=== PATIENT | female | born 1950 | race Caucasian/White ===

== ENCOUNTER 2016-06-18 11:06 | Inpatient (IN) ==
[2016-06-18] MEDS ORDERED: NS 2,000 ML ONE (11:22)
[2016-06-18 11:30] LABS: BE 12.1 mmoll (-3.0-3.0); BLOOD TYPE ARTERIAL; DRAW SITE R RADIAL; METHB 1.1 % (0.0-1.5); O2(CT) 18.8 mL/dL (15.0-23.0); PCO2(98.6) 41 mmHg (35-45); SAMPLE BLOOD; SAO2 91.3 % (95.0-100.0); THB 16.5 g/dL (11.5-17.4); pH(98.6) 7.55 (7.35-7.45)
[2016-06-18 11:34] LABS: MODALITY ROOM AIR; PO2(98.6) 47 mmHg (60-100)
[2016-06-18 11:34] LABS: MANUAL DIFF NEEDED? NO
[2016-06-18] MEDS ORDERED: NS 1,000 ML IV ONE ×2 (11:34→12:28)
[2016-06-18 11:35] LABS: ALLEN TEST YES
[2016-06-18 11:37] LABS: BASO% 0.5 % (0.0-0.8); EOS# 0.11 X1000 (0.0-0.7); EOS% 1.5 % (0.0-10.0); HEMATOCRIT 47.3 % (37.0-47.0); HEMOGLOBIN 16.1 g/dL (12.0-16.0); IMM GRAN# 0.01 X1000 (0.0-0.04); IMM GRAN% 0.1 % (0.0-0.5); LYMPH# 1.33 X1000 (1.2-3.4); LYMPH% 17.8 % (20.5-51.1); MCH 33.6 PG (27-31); MCV 98.7 FL (81-99); MONO# 0.87 X1000 (0.11-0.59); MONO% 11.7 % (1.7-9.3); MPV 10.5 FL (7.4-10.4); NEUT% 68.4 % (42.2-75.2); PLT 213 X1000 (130-400); RBC 4.79 XMIL (4.2-5.4)
--- NOTE | 2016-06-18 11:38 | EKG Report ---
Test Performed on : 06/18/2016 11:22:01 AM Test Reason : SOB Blood Pressure : / mmHG Vent. Rate : 145 BPM Atrial Rate : 133 BPM P-R Int : 000 ms QRS Dur : 074 ms QT Int : 334 ms P-R-T Axes : 000 064 068 degrees QTc Int : 518 ms Atrial fibrillation. with rapid ventricular response. Abnormal ECG When compared with ECG of 09-JAN-2016 13:24, No significant change was found Unconfirmed Result
[2016-06-18 11:57] LABS: INR 1.01 (0.86-1.15); PROTIME 13.6 Seconds (12.1-15.5); PTT PL 33.7 Seconds (22.6-43.9)
[2016-06-18] MEDS ORDERED: NEO-SYNEPHRINE 50 MG in NS 250 ML IV SCH ×2 (12:00→12:30)
[2016-06-18 12:01] LABS: ALBUMIN 3.3 g/dL (3.5-5.0); CALCIUM 9.5 mg/dL (8.8-10.2); POTASSIUM 2.8 mmol/L (3.5-5.1); TOTAL BILIRUBIN 0.4 mg/dL (0.20-1.00); TOTAL PROTEIN 6.8 g/dL (6.3-8.3)
[2016-06-18 12:24] LABS: CK INDEX 0.8 (0.0-2.5); CK-MB 1.4 ng/mL (0.0-5.0)
[2016-06-18] MEDS ORDERED: NS 1,000 ML ONE (12:27)
--- NOTE | 2016-06-18 12:27 | PROVIDER DOCUMENTATION ---
This chart was entered by Lyndsey Kaplan Scribe, acting as scribe for Mk Boyd MD. HPI-Respiratory General - General Chief Complaint: Shortness of Breath Stated Complaint: SOB,DIZZINESS,LOW BP Time Seen by Provider: 06/18/16 11:18 Source: patient Allergies/Adverse Reactions: Patient Allergies Allergy/AdvReac Type Severity Reaction Status Date / Time codeine Allergy NAUSEA Verified 06/18/16 11:12 Home Medications: Home Medication List Medication Instructions Recorded Confirmed Last Taken Type Chlorthalidone 25 mg PO DAILY 07/12/14 06/18/16 01/09/16 09:00 History Glipizide 5 mg PO QHS 07/12/14 06/18/16 07/11/14 07:00 History Sotalol HCl [Sorine] 80 mg PO BID 07/12/14 06/18/16 07/11/14 20:00 History Temazepam 30 mg PO QHS 07/12/14 06/18/16 07/11/14 22:00 History Apixaban [Eliquis] 2.5 mg PO BID 01/09/16 06/18/16 01/04/16 History Aspirin [Aspirin EC] 81 mg PO DAILY 01/09/16 06/18/16 01/04/16 History Cilostazol 100 mg PO BID 01/09/16 06/18/16 01/09/16 09:00 History Duloxetine [Cymbalta] 60 mg PO DAILY 01/09/16 06/18/16 Unknown History Gabapentin 2 cap PO QHS 01/09/16 06/18/16 Unknown History Lisinopril 20 mg PO DAILY 01/09/16 06/18/16 01/04/16 History SIMVAstatin [Zocor] 1 tab PO QHS 01/09/16 06/18/16 Unknown History Budesonide E.r. [Entocort EC] 3 mg PO BID 06/18/16 06/18/16 Unknown History - History of Present Illness-Resp Nature of Presenting Problem: 66 yo F presents to the ER with complaint of SOB x4 days. States she has had a URI x1 week ago and has been increasingly SOB for the last x4 days. Denies any CP or n/v/d. Onset/Duration: reports: 4 days ago Cough Quality/Degree: reports: moderate Associated Symptoms: reports: cough, shortness of breath, short of breath. denies: chest pain/soreness, fever/chills Review of Systems - Adult - REVIEW OF SYSTEMS - ADULT Constitutional: denies: chills, fever Eyes: reports: no symptoms reported Ears, Nose, Mouth & Throat: reports: no symptoms reported Cardiovascular: denies: chest pain, palpitations Respiratory: reports: cough, shortness of breath Gastrointestinal: reports: no symptoms reported Genitourinary: reports: no symptoms reported Musculoskeletal: reports: no symptoms reported Integumentary: reports: no symptoms reported Neurological: reports: no symptoms reported Psychiatric: reports: no symptoms reported Endocrine: reports: no symptoms reported Hematologic/Lymphatic: reports: no symptoms reported Allergic/Immunologic: reports: no symptoms reported All Other Systems: Reviewed and Negative Past History - Adult - PAST MEDICAL HISTORY-ADULT Review of Records: reports: Nursing Assessment Review, Medications Reviewed Cardiovascular: reports: A-Fib, HTN Respiratory: reports: COPD Genitourinary: reports: kidney disease Psychiatric: reports: depression Endocrine/Immune: reports: Diabetes - PRIOR SURGERIES/PROCEDURES Surgical/Procedure History: reports: cholecystectomy, hysterectomy, hernia repair - IMMUNIZATION STATUS Childhood Immunizations: See Nurse Assessment Flu Vaccine: See Nurse Assessment - SOCIAL HISTORY Smoking: cigarettes Provider spent 3-5 mins advising pt. on dangers of tobacco.: Discussed manners to quit use, and f/u contacts for add'l counseling. Physical Exam-General - PHYSICAL EXAM-ADULT Initial Vital Signs Reviewed: Yes - CONSTITUTIONAL General Appearance: alert, mild distress - EYES Eyes: PERRL/EOMI, pink conjunctivae - HEAD, EARS, NOSE, MOUTH & THROAT HENMT: normocephalic/atraumatic, normal ENT inspection - NECK Neck: supple, normal inspection - RESPIRATORY Respiratory: rhonchi, increased rate - CARDIOVASCULAR Cardiovascular: normal peripheral pulses, no edema, tachycardia - MUSCULOSKELETAL Back Exam: no CVA tenderness, no vertebral tenderness Extremity: normal gait, normal inspection - SKIN Integumentary: normal color, warm/dry - NEUROLOGIC Neurologic: grossly normal, no motor/sensory deficits - PSYCHIATRIC Psych/Mental Status: normal mood/affect, normal thought content, normal thought process, oriented x 3 Progress - PLAN OF CARE/RESULTS Progress/Plan/Lab Results: Vital Signs - 8 hr 06/18/16 11:09 Temperature 97.2 F L Pulse Rate 122 H Respiratory Rate 30 H Blood Pressure 94/58 Laboratory Results - last 24 hr 06/18/16 06/18/16 06/18/16 11:15 11:20 11:20 WBC 7.46 RBC 4.79 Hgb 16.1 H Hct 47.3 H MCV 98.7 MCH 33.6 H MCHC 34.0 RDW Std Deviation 13.0 Plt Count 213 MPV 10.5 H Immature Gran % (Auto) 0.1 Neut % (Auto) 68.4 Lymph % (Auto) 17.8 L [place] % (Auto) 11.7 H Eos % (Auto) 1.5 Baso % (Auto) 0.5 Immature Gran # (Auto) 0.01 Neut # (Auto) 5.10 Lymph # (Auto) 1.33 [place] # (Auto) 0.87 H Eos # (Auto) 0.11 Baso # (Auto) 0.04 PT INR APTT (Factor Assay) D-Dimer Specimen Type ARTERIAL Sample Site R RADIAL pH 7.55 H pCO2 41 pO2 47 L* HCO3 33.8 H Base Excess 12.1 H Oxyhemoglobin 81.3 L* ABG O2 Sat (Calculated) 18.8 ABG O2 Saturation 91.3 L ABG Carboxyhemoglobin 9.90 H* ABG Methemoglobin 1.1 Josh Test YES A-a O2 Difference 51.0 Total Hemoglobin 16.5 Lactate 1.40 Blood Gas Modality ROOM AIR FiO2 % 21.0 Sodium 133 L Potassium 2.8 L Chloride 89 L Carbon Dioxide 33 Anion Gap 11 BUN 24 H Creatinine 1.4 H Estimated GFR/1.73 m2 38 BUN/Creatinine Ratio 17 Glucose 173 H Calculated Osmolality 275 Calcium 9.5 Magnesium Total Bilirubin 0.40 AST 22 ALT 19 Alkaline Phosphatase 75 Creatine Kinase Creatine Kinase Index CK-MB (CK-2) Troponin T Hbx-H-Lsytidbxjmq Pept Total Protein 6.8 Albumin 3.3 L Globulin 4.0 Albumin/Globulin Ratio 1.0 Plasma Lactate 06/18/16 06/18/16 06/18/16 11:20 11:20 11:20 WBC RBC Hgb Hct MCV MCH MCHC RDW Std Deviation Plt Count MPV Immature Gran % (Auto) Neut % (Auto) Lymph % (Auto) [place] % (Auto) Eos % (Auto) Baso % (Auto) Immature Gran # (Auto) Neut # (Auto) Lymph # (Auto) [place] # (Auto) Eos # (Auto) Baso # (Auto) PT INR APTT (Factor Assay) D-Dimer Specimen Type Sample Site pH pCO2 pO2 HCO3 Base Excess Oxyhemoglobin ABG O2 Sat (Calculated) ABG O2 Saturation ABG Carboxyhemoglobin ABG Methemoglobin Josh Test A-a O2 Difference Total Hemoglobin Lactate Blood Gas Modality FiO2 % Sodium Potassium Chloride Carbon Dioxide Anion Gap BUN Creatinine Estimated GFR/1.73 m2 BUN/Creatinine Ratio Glucose Calculated Osmolality Calcium Magnesium Total Bilirubin AST ALT Alkaline Phosphatase Creatine Kinase 186 H Creatine Kinase Index 0.8 CK-MB (CK-2) 1.40 Troponin T < 0.010 Ild-J-Eszndeeyreu Pept 343 Total Protein Albumin Globulin Albumin/Globulin Ratio Plasma Lactate 06/18/16 06/18/16 06/18/16 11:20 11:20 11:20 WBC RBC Hgb Hct MCV MCH MCHC RDW Std Deviation Plt Count MPV Immature Gran % (Auto) Neut % (Auto) Lymph % (Auto) [place] % (Auto) Eos % (Auto) Baso % (Auto) Immature Gran # (Auto) Neut # (Auto) Lymph # (Auto) [place] # (Auto) Eos # (Auto) Baso # (Auto) PT 13.6 INR 1.01 APTT (Factor Assay) 33.7 D-Dimer Specimen Type Sample Site pH pCO2 pO2 HCO3 Base Excess Oxyhemoglobin ABG O2 Sat (Calculated) ABG O2 Saturation ABG Carboxyhemoglobin ABG Methemoglobin Josh Test A-a O2 Difference Total Hemoglobin Lactate Blood Gas Modality FiO2 % Sodium Potassium Chloride Carbon Dioxide Anion Gap BUN Creatinine Estimated GFR/1.73 m2 BUN/Creatinine Ratio Glucose Calculated Osmolality Calcium Magnesium 2.0 Total Bilirubin AST ALT Alkaline Phosphatase Creatine Kinase Creatine Kinase Index CK-MB (CK-2) Troponin T Dly-B-Orlkdzpgcnz Pept Total Protein Albumin Globulin Albumin/Globulin Ratio Plasma Lactate 2.0 06/18/16 11:20 WBC RBC Hgb Hct MCV MCH MCHC RDW Std Deviation Plt Count MPV Immature Gran % (Auto) Neut % (Auto) Lymph % (Auto) [place] % (Auto) Eos % (Auto) Baso % (Auto) Immature Gran # (Auto) Neut # (Auto) Lymph # (Auto) [place] # (Auto) Eos # (Auto) Baso # (Auto) PT INR APTT (Factor Assay) D-Dimer 0.33 Specimen Type Sample Site pH pCO2 pO2 HCO3 Base Excess Oxyhemoglobin ABG O2 Sat (Calculated) ABG O2 Saturation ABG Carboxyhemoglobin ABG Methemoglobin Josh Test A-a O2 Difference Total Hemoglobin Lactate Blood Gas Modality FiO2 % Sodium Potassium Chloride Carbon Dioxide Anion Gap BUN Creatinine Estimated GFR/1.73 m2 BUN/Creatinine Ratio Glucose Calculated Osmolality Calcium Magnesium Total Bilirubin AST ALT Alkaline Phosphatase Creatine Kinase Creatine Kinase Index CK-MB (CK-2) Troponin T Bli-J-Gizfsfiksow Pept Total Protein Albumin Globulin Albumin/Globulin Ratio Plasma Lactate Orders Category Date Time Status Cardiac Monitoring DIRECTED Care 06/18/16 11:26 Active IV Insertion ORDERED Care 06/18/16 11:26 Completed Notify MD of + Sepsis Screen NOW Care 06/18/16 11:26 Active CHEST-PORTABLE [RAD] Stat Exams 06/18/16 11:18 Taken ABG [RESP] Routine Lab 06/18/16 11:15 Completed BLOOD CULTURE [BLDCUL] Stat Lab 06/18/16 11:21 Ordered BNP [PRO B-NATRIURETIC PEPTIDE] Stat Lab 06/18/16 11:20 Completed CBC WITH DIFF [HEME] Stat Lab 06/18/16 11:20 Completed CK PROFILE [SP CHEM] Stat Lab 06/18/16 11:20 Results COMPREHENSIVE METABOLIC PANEL [CHEM] Stat Lab 06/18/16 11:20 [address] D-DIMER PL [COAG] Stat Lab 06/18/16 11:20 Completed LACTATE, PLASMA [CHEM] Stat Lab 06/18/16 11:20 Completed MAGNESIUM [CHEM] Stat Lab 06/18/16 11:20 Completed [address]IME WITH INR PL [COAG] Stat Lab 06/18/16 11:[address] [COAG] Stat Lab 06/18/16 11:20 Completed TROPONIN T Stat Lab 06/18/16 11:[address] W/POSS RFLX CULT [URINALYSIS] Stat Lab 06/18/16 11:26 Uncollected 0.9% Sodium Chloride Inj [Ns] 1,000 ml Med 06/18/16 11:34 Active IV 999 mls/hr 0.9% Sodium Chloride Inj [Ns] 2,000 ml Med 06/18/16 11:22 Discontinued .ROUTE As Directed 0.9% Sodium Chloride Inj [Ns] 250 ml Med 06/18/16 12:00 Active Phenylephrine [Sachin-Synephrine] 50 mg IV As Directed Oxygen Device Stat Oth 06/18/16 11:26 Active EKG [EKG] Routine Ther 06/18/16 11:21 Draft Result Diagrams: 06/18/16 11:20 06/18/16 11:20 - EKG 1 Time of EKG reading by physician:: 11:22 EKG Read and Signed by:: Mk Boyd EKG Interpretation (*Must complete 3 of following elements*): Abnormal Rate: 145 Rhythm: a-fib with rapid ventricular response [place]: normal QRS: normal GA Interval: normal ST Wave: normal - XRAY 1 XRAY Study: Chest Impression: Normal - CONSULTS/PCP/HOSPITALIST Notification #1 *Consult/PCP/Hospitalist*: Dr. Grant Time Discussed: 12:18 Consult Disposition: Admit Departure - Departure Time of Disposition Decision: 12:24 DIAGNOSIS: Hypotension, Atrial fibrillation, Hypokalemia, COPD (chronic obstructive pulmonary disease) with acute bronchitis Disposition: ADMITTED INPATIENT 09 Certified Medical Emergency: Emergent Condition: Stable Referrals and Follow-Ups: Corine Ruffin MD [Primary Care Provider] - This chart was documented by the indicated scribe, (Lyndsey Kaplan Scribe) and accurately reflects the services I performed and decisions made by me, Mk Boyd MD, as attested by the provider's signature.
--- NOTE | 2016-06-18 12:58 | Diag Imaging Result Document ---
PROCEDURE NAME: CHEST-PORTABLE - 06/18/2016 PORTABLE CHEST X-RAY, 06/18/2016: COMPARISON: 06/12/2016. FINDINGS: The lungs are normally expanded and clear. Heart size and mediastinal contours are normal. No pneumothorax or pleural effusion. IMPRESSION: Negative exam.
[2016-06-18] MEDS: ZOSYN 3.375 GM/NS 3.375 GM/50 ML IVPB IV SCH ×2 (15:42→20:38)
[2016-06-18] MEDS: DUONEB (A & A) INH SCH ×3 (16:10→22:30)
[2016-06-18] MEDS: CARDIZEM PO SCH (20:38)
[2016-06-18] MEDS: NS 1,000 ML IV SCH (20:39)
[2016-06-18] MEDS: RESTORIL PO SCH (21:19)
[2016-06-18] MEDS: GLUCOTROL PO SCH (22:44)
[2016-06-18] MEDS: NEURONTIN PO SCH (22:45)
[2016-06-19] MEDS: CARDIZEM PO SCH ×3 (01:34→13:55)
[2016-06-19] MEDS: ZOSYN 3.375 GM/NS 3.375 GM/50 ML IVPB IV SCH ×4 (02:07→21:05)
[2016-06-19 02:37] LABS: BILIRUBIN URINE NEGATIVE (NEGATIVE); BLOOD URINE 1+ (NEGATIVE); CLARITY CLEAR (CLEAR); COLOR YELLOW; GLUCOSE URINE NEGATIVE (NEGATIVE); LEUKOCYTES URINE TRACE (NEGATIVE); NITRITE URINE NEGATIVE (NEGATIVE); PROTEIN URINE NEGATIVE (NEGATIVE); UROBILINOGEN URINE NORMAL
[2016-06-19 02:38] LABS: URINE CULTURE PL NEEDED? YES; URINE EPITHELIAL CELLS <10 /HPF (<10); URINE RBC <10 /HPF (<10); URINE SOURCE CLEAN CATCH; URINE WBC <10 /HPF (<10)
[2016-06-19] MEDS: DUONEB (A & A) INH SCH ×6 (03:19→22:45)
[2016-06-19 08:30] LABS: HEMATOCRIT 40.4 % (37.0-47.0); HEMOGLOBIN 13.4 g/dL (12.0-16.0); MCH 33.3 PG (27-31); MCHC 33.2 g/dL (33-37); MCV 100.5 FL (81-99); MPV 10.3 FL (7.4-10.4); RBC 4.02 XMIL (4.2-5.4)
[2016-06-19] MEDS: BETAPACE PO SCH ×2 (08:50→21:03)
[2016-06-19] MEDS: CYMBALTA PO SCH (08:50)
[2016-06-19 08:51] LABS: AGAP 8; ALBUMIN 2.6 g/dL (3.5-5.0); ALKALINE PHOSPHATASE 57 U/L (32-104); BUN 12 mg/dL (8-22); CALCIUM 8.3 mg/dL (8.8-10.2); CHLORIDE 102 mmol/L (98-107); COSMO 273; GOT 17 U/L (10-30); GPT 13 U/L (10-36); HDL 38 mg/dL (45-65); LDL 42 mg/dL; MAGNESIUM 1.8 mg/dL (1.5-2.7); POTASSIUM 3.2 mmol/L (3.5-5.1); SODIUM 137 mmol/L (136-145); TCO2 27 mmol/L (25-35); TOTAL PROTEIN 5.5 g/dL (6.3-8.3); TRIGLYCERIDES 96 mg/dL (35-135); VLDL 19 mg/dL
[2016-06-19] MEDS: PLETAL PO SCH ×2 (08:51→21:04)
[2016-06-19] MEDS: ASPIRIN EC PO SCH (08:51)
[2016-06-19] MEDS: ELIQUIS PO SCH ×2 (08:51→21:03)
[2016-06-19] MEDS ORDERED: PRINIVIL PO SCH (09:00)
[2016-06-19] MEDS ORDERED: HYGROTON PO SCH (09:00)
[2016-06-19] MEDS: NS 1,000 ML IV SCH ×2 (11:00→23:46)
[2016-06-19] MEDS: ENTOCORT EC PO SCH ×2 (11:06→21:05)
[2016-06-19] MEDS ORDERED: KLOR-CON PO ONE (14:20)
--- NOTE | 2016-06-19 16:57 | CONSULTATION ---
DATE OF CONSULTATION: 06/19/2016 HISTORY OF PRESENT ILLNESS: Ms. Negar Henry is a 66-year-old lady who for the last week has been having cough with some low-grade fevers and expectoration and was diagnosed to have bronchitis. She came to the emergency room feeling unwell, short of breath and was noted to be in atrial fibrillation with rapid ventricular rate. She has known history of paroxysmal atrial fibrillation. She has been taking her medications regularly. When she came in, she was hypotensive and she was started on a Sachin-Synephrine drip which was discontinued last night. She feels much better. Complains of having cough. Denies chest pain suggestive of angina. She has episodes of palpitations. There is no orthopnea. There is no mary syncopal episode. She is anticoagulated, does not complain of any bleeding diatheses. REVIEW OF SYSTEMS: 14-point review of system was done. GI System: There is no history of nausea, vomiting, or diarrhea. There is no history of hematemesis or melena. Central nervous system: No focal weakness to suggest a CVA, TIA. system: There is no dysuria or hematuria. Respiratory system: As above. ALLERGIES: She is allergic to codeine. HOME MEDICATIONS: Include. Glipizide 5 mg p.o. at bedtime, temazepam 30, chlorthalidone 25, sotalol 80 b.i.d., Cymbalta 60, lisinopril 20, enteric-coated aspirin 81, Eliquis 2.5 mg p.o. b.i.d., simvastatin 40, budesonide. PAST MEDICAL HISTORY: 1. Paroxysmal atrial fibrillation. 2. Left heart catheterization 2009 revealed normal coronary arteries. 3. Anticoagulation therapy with Eliquis. 4. History of palpitations. 5. Hypertension, hyperlipidemia. 6. History of renal insufficiency in the past. 7. Diabetes. 8. Nicotine dependence. 9. Degenerative joint disease. 10. Depression. 11. Hypercholesterolemia. PHYSICAL EXAM: Vital signs: At the time of my examination blood pressure 113/72. Cardiovascular System: Normal jugular venous pressure. There no thyromegaly, is no carotid bruit. First and second heart sounds heard. There is no S3 gallop. Respiratory System: Few scattered wheeze. Abdomen: Was soft, nontender. There was no guarding or rigidity. Bowel sounds were heard. Central nervous system: Alert and was moving all 4 extremities. Extremities: Examination of extremities revealed no pedal edema. HEENT: Atraumatic, normocephalic. Pupils were equal and reacting to light. LABORATORY EXAMINATION: WBC 7.46, hemoglobin 16, hematocrit 47, platelet count of 213,000. Sodium 133, potassium 2.8, BUN 24, creatinine 1.4. Cardiac enzymes negative. Subsequent revealed a sodium of 137, potassium 3.2, BUN 12, creatinine 1.0. ASSESSMENT AND PLAN: 1. Ms. Negar Henry is a 66-year-old lady with history of paroxysmal atrial fibrillation, hypertension, anticoagulation therapy, renal insufficiency mild and has had bronchitis for the last 1 week comes with complaints of feeling increasing shortness of breath and weak. She was noted to be hypotensive, was hydrated and given Sachin-Synephrine. She feels better. She continues to have cough. From a cardiac standpoint, will continue her anticoagulation therapy for stroke prophylaxis. 2. Got an echocardiogram to assess cardiac and valvular function. 3. She is on sotalol. I have not made any changes to her medication. She has been started on Cardizem. Will put her on Cardizem CD 120 mg a day. Her atrial fibrillation could have been triggered with respiratory tract infection and hypokalemia as well. Probably the hypokalemia caused by chlorthalidone. Would recommend discontinuing the chlorthalidone. Will check a BMP again in the morning. 4. For hypertension I have made the adjustment to the medications, decreased lisinopril since I have added Cardizem. 5. She has been started for her bronchitis on antibiotics and is on piperacillin. I have not made any other changes to the medications. 6. Hypocholesterolemia on Zocor. Continue medications. 7. She is on glipizide for diabetes. Would recommend continuing medications. Thank you for the consult. Will follow hospital course. cc: Raúl Newberry MD
--- NOTE | 2016-06-19 17:32 | HISTORY AND PHYSICAL ---
PRIMARY CARE PHYSICIAN: Corine Ruffin MD. CHIEF COMPLAINT: Shortness of breath that progressively worsened over the past 4 days. HISTORY OF PRESENTING ILLNESS: This is a 66-year-old female who presented to [facility] ER with complaints of shortness of breath that has progressively worsened over the past 4 days. States that approximately 1 week ago. She was treated for an upper respiratory infection, but that it really did not improve. She denied any chest pain, nausea, vomiting or diarrhea. Her chest x-ray was negative. On arrival to the emergency room, she was noted to have a heart rate of 122. EKG showed atrial fibrillation with RVR at 145. Her blood pressure on arrival was 94/58, and within 20 minutes dropped to 81/64, she was started on a Sachin-Synephrine drip. Placed on IV hydration. Placed on Cardizem 30 mg 5 p.o. q.6 hours, and she was admitted to the intensive care unit for further evaluation and treatment. PAST MEDICAL HISTORY: Atrial fibrillation, hypertension, diabetes, depression and chronic kidney disease. PAST SURGICAL HISTORY: Cholecystectomy, hysterectomy, hernia repair and back surgery. FAMILY HISTORY: Noncontributory. SOCIAL HISTORY: She currently lives alone, is a 1 pack a day smoker and has done so for the past 40 years. Denied any alcohol or illicit drug use. ALLERGIES: Codeine. HOME MEDICATIONS: Eliquis 2.5 mg p.o. b.i.d., aspirin 81 mg p.o. daily, Entocort 3 mg p.o. b.i.d., chlorthalidone 25 mg p.o. daily. Cilostazol 100 mg p.o. b.i.d., Cymbalta 60 mg p.o. daily, gabapentin 300 mg 2 capsules p.o. at bedtime, glipizide 5 mg p.o. at bedtime, lisinopril 20 mg p.o. daily, Zocor 40 mg p.o. at bedtime, sotalol 80 mg p.o. b.i.d., and temazepam 30 mg p.o. at bedtime. LABORATORY DATA/DIAGNOSTICS: Showed a white blood cell count of 7.46, hemoglobin 16.1, hematocrit 47.3, platelets 213,000. PT and INR of 13.6 and 1.01 with a D-dimer of 0.33. ABG showed a pH of 7.55, pCO2 of 41, PO2 47, bicarb of 33.8. Sodium of 133, potassium 2.8, chloride 89, CO2 of 33, BUN of 24, creatinine 1.4, glucose 173, magnesium at 2. AST 22, ALT 19, creatine kinase of 186, CK-MB of 1.40 with a troponin of less than 0.010. ProBNP of 343, plasma lactate 2, triglycerides of 96, cholesterol 99. Urinalysis was negative. Chest x-ray showed no acute disease. EKG, atrial fibrillation with RVR at 145. REVIEW OF SYSTEMS: She denied any fever, chills, blurred vision, dizziness. She was positive for shortness of breath, nonproductive cough. Denied chest pain. Denied any abdominal pain, constipation, diarrhea, or burning or hurting with urination. PHYSICAL EXAMINATION: VITAL SIGNS: On arrival showed a temperature of 97.2 degrees, pulse 122. Respirations 30, blood pressure 94/58, saturating 99% on room air. She is currently off of her Sachin-Synephrine drip. Heart rate down to 103, blood pressure up to 113/62, saturating 94% on 2 L via nasal cannula. GENERAL: This is a 66-year-old female who is lying in the bed and answers questions appropriately. HEENT: Normocephalic, atraumatic. Pupils are equal, round, reactive to light. Extraocular movements are intact. Oropharynx and nares are clear. NECK: Supple. LUNGS: Clear to auscultation bilaterally with equal lung expansion and chest wall movement. HEART: Regular rate and rhythm. No murmurs, rubs, or gallops. ABDOMEN: Soft, nontender, nondistended. Bowel sounds are present x4 quadrants. EXTREMITIES: No clubbing, cyanosis, or edema. NEUROLOGICAL: The cranial nerves 2-12 are grossly intact. ASSESSMENT: 1. Atrial fibrillation with rapid ventricular response. 2. Hyponatremia. 3. Hypokalemia. 4. Hypotension. 5. Tobacco abuse. PLAN: She was admitted to the intensive care unit. Placed on telemetry, diabetic diet. We will obtain an echocardiogram in the a.m. We will consult Cardiology. Recheck complete blood count, basic metabolic panel, urine culture is pending. Continue her home medications, DuoNeb q.4 hours, normal saline at 75 mL an hour, Zosyn 3.375 g IV q.6, and potassium 60 mEq p.o. x1 was given. Dictated by MENDOZA Thomas for Manish Grant MD cc: MENDOZA Thomas MD Bhavna Gowda, MD
[2016-06-19] MEDS: GLUCOTROL PO SCH (20:20)
[2016-06-19] MEDS: CARDIZEM CD PO SCH (21:03)
[2016-06-19] MEDS: NEURONTIN PO SCH (21:04)
[2016-06-19] MEDS: RESTORIL PO SCH (21:04)
[2016-06-19] MEDS: ZOCOR PO SCH (21:05)
--- NOTE | 2016-06-20 01:20 | PROGRESS NOTE ---
DATE: 06/19/2016 SUBJECTIVE: The patient notes that she is feeling better today. She denies any current chest pain, palpitations. Denies any fevers or chills. OBJECTIVE: Vital Signs: Temperature 97.9, pulse 107 to 89, respiratory rate 31, BP 111/71, sat 95% on 2 L. General: Patient is awake, alert. She is currently in no real respiratory distress. HEENT: Normocephalic. Neck: Supple. Cardiovascular: Regular rate. Chest: Relatively clear. Abdomen: Soft. Extremities: Moves all extremities. Neurologic: No changes. ASSESSMENT: 1. Atrial fibrillation, improved. 2. Hypertension. 3. Renal insufficiency. 4. Diabetes. 5. Hyponatremia. 6. Hypokalemia. 7. Chronic tobacco abuse. 8. Hypotension, resolved. PLAN: We will continue patient on Zosyn, DuoNeb's, replace her potassium. Cardiology has been consulted, and has placed her on p.o. Cardizem. Certainly, we will need to follow her blood pressures, as she did have low blood pressures earlier. Thankfully, she seems to be tolerating this okay at the moment. Hopefully, we will transfer her to the floor later this afternoon. Further orders as needed. cc: Manish Grant MD
[2016-06-20] MEDS: ZOSYN 3.375 GM/NS 3.375 GM/50 ML IVPB IV SCH ×4 (02:02→21:44)
[2016-06-20] MEDS: DUONEB (A & A) INH SCH ×6 (02:58→23:19)
[2016-06-20 06:34] LABS: MANUAL DIFF NEEDED? NO
[2016-06-20 06:46] LABS: BASO% 0.3 % (0.0-0.8); EOS# 0.25 X1000 (0.0-0.7); EOS% 3.4 % (0.0-10.0); HEMATOCRIT 39.4 % (37.0-47.0); HEMOGLOBIN 12.9 g/dL (12.0-16.0); IMM GRAN# 0.02 X1000 (0.0-0.04); IMM GRAN% 0.3 % (0.0-0.5); LYMPH# 1.27 X1000 (1.2-3.4); LYMPH% 17.1 % (20.5-51.1); MCH 32.8 PG (27-31); MCHC 32.7 g/dL (33-37); MCV 100.3 FL (81-99); MONO# 0.85 X1000 (0.11-0.59); MONO% 11.4 % (1.7-9.3); MPV 10.1 FL (7.4-10.4); NEUT% 67.5 % (42.2-75.2); PLT 188 X1000 (130-400); RBC 3.93 XMIL (4.2-5.4)
[2016-06-20 07:38] LABS: CALCIUM 8.4 mg/dL (8.8-10.2); POTASSIUM 3.7 mmol/L (3.5-5.1)
[2016-06-20] MEDS: PLETAL PO SCH ×2 (08:07→20:38)
[2016-06-20] MEDS: CYMBALTA PO SCH (08:07)
[2016-06-20] MEDS: ELIQUIS PO SCH ×2 (08:07→20:38)
[2016-06-20] MEDS: ENTOCORT EC PO SCH ×2 (08:07→20:39)
[2016-06-20] MEDS: BETAPACE PO SCH ×2 (08:07→20:38)
[2016-06-20] MEDS: ASPIRIN EC PO SCH (08:07)
[2016-06-20] MEDS: CARDIZEM CD PO SCH (08:07)
[2016-06-20] MEDS: PRINIVIL PO SCH (08:56)
[2016-06-20] MEDS ORDERED: LANOXIN PO SCH (10:15)
--- NOTE | 2016-06-20 10:34 | PROGRESS NOTE ---
DATE: 06/20/2016 SUBJECTIVE: Today, Ms. Henry refers to be doing fine. Continues to have some baseline cough. OBJECTIVE: Vital Signs: Blood pressure is 114/76, pulse of 78, respirations are 18, temperature is 98.3 degrees. General Examination: Ms. Henry is a 66-year-old, female. She is in bed, does not seems to be in any remarkable distress. HEENT: Mucous is pink and moist. Anicteric and acyanotic. Neck: Supple. Chest: Air entry is bilaterally reduced. There is prolonged expiratory phase of respiration and there is diffuse bilateral end-expiratory wheezing. Cardiovascular: Irregularly irregular but no murmurs. Abdomen: Soft, nontender. Extremities: No pedal edema. BAGGAGE HANDLER: Patient is alert and oriented x4. There is no focal neurologic deficit. Laboratory Data: WBC 7.46, hemoglobin is 12.9, platelet count of 118,000. Chemistry: Sodium is 139, potassium is 3.7, chloride 105, bicarb is 21, creatinine is 1.1. Blood gases done on admission just showed a PaO2 of 42 with a carboxyhemoglobin level of 9.9. ASSESSMENT: 1. Acute hypoxemic respiratory failure, likely due to underlying chronic obstructive pulmonary disease exacerbation. 2. Suspected chronic obstructive pulmonary disease. This has not been diagnosed with pulmonary function tests but the patient has a significant smoking history and has bronchospasms, and also has been having bronchitis over the years for some time which gets treated every now and then. I think down the line, she needs to follow up with pulmonary medicine to have pulmonary function tests. 3. Atrial fibrillation, rapid ventricular response. Some changes were done to patient's medication. She is currently on diltiazem and sotalol. Pulse continues to go up and down. I will add digoxin for better rate control. Patient is pending an echocardiogram this morning to look at the valve anatomy. 4. Carboxyhemoglobinemia, consistent with active tobacco smoking. Patient has been counseled. 5. Acute kidney injury due to volume depletion. Patient continues on adequate hydration. 6. Electrolyte imbalance. This has been corrected. 7. Eliquis anticoagulation noted. 8. Chronic diarrhea. Etiology is unclear. The patient is being followed up by gastroenterology on an outpatient basis for that. PLAN: I think Ms. Henry is doing fine. I think her main problem is the possible COPD exacerbation that triggers her atrial fibrillation to go into RVR. She is currently on antibiotics. She is getting some DuoNebs. I will add a steroid to help with the COPD exacerbation management. We will continue with the current rate control medications. I have added digoxin to help with a better rate control. Patient is going to be transferred from the ICU to the regular floor and we will continue with her care over there. cc: Giuseppe Lin MD
--- NOTE | 2016-06-20 13:35 | ECHO REPORT ---
ORDER DATE: 06/20/2016 INDICATION: Atrial fibrillation. FINDINGS: 1. The right atrium appears normal in size at 3.3 cm. 2. Mild tricuspid regurgitation. RV systolic pressure of 49. 3. Normal RV size and systolic function. 4. No significant pulmonic insufficiency. 5. Normal left atrial size at 3.9 cm. 6. No mitral valve prolapse. Trace mitral regurgitation. 7. Normal LV size, end-diastolic dimension of 3.5. Suggestion of mild left ventricular hypertrophy with posterior and interventricular septal thickness 1.2 cm each. Normal LV systolic function. Calculated EF of 64% with normal wall motion. 8. Aortic valve opens well and appears trileaflet. No evidence of stenosis or insufficiency. The valve is somewhat sclerotic but not stenotic. 9. Aorta appears normal in visualized segments. 10. No pericardial effusion seen. 11. Patient does appear to be in atrial fibrillation during the course of the study. cc: MD Kina Graham CRNP
[2016-06-20] MEDS: NS 1,000 ML IV SCH (15:50)
[2016-06-20] MEDS: GLUCOTROL PO SCH (20:32)
[2016-06-20 20:33] LABS: OCCULT BLOOD 1 POSITIVE (NEGATIVE)
[2016-06-20] MEDS: NEURONTIN PO SCH (20:37)
[2016-06-20] MEDS: ZOCOR PO SCH (20:38)
[2016-06-20] MEDS: RESTORIL PO SCH (20:38)
[2016-06-20] MEDS: SOLU-MEDROL IV SCH (21:47)
[2016-06-21] MEDS: DUONEB (A & A) INH SCH ×6 (04:50→23:07)
[2016-06-21] MEDS: NS 1,000 ML IV SCH ×2 (05:23→16:08)
[2016-06-21] MEDS: ZOSYN 3.375 GM/NS 3.375 GM/50 ML IVPB IV SCH ×2 (05:23→09:20)
[2016-06-21] MEDS: SOLU-MEDROL IV SCH ×3 (05:24→21:35)
[2016-06-21 06:52] LABS: BASO% 0.1 % (0.0-0.8); HEMATOCRIT 38.7 % (37.0-47.0); HEMOGLOBIN 12.9 g/dL (12.0-16.0); IMM GRAN# 0.02 X1000 (0.0-0.04); IMM GRAN% 0.3 % (0.0-0.5); LYMPH# 0.54 X1000 (1.2-3.4); LYMPH% 7.6 % (20.5-51.1); MANUAL DIFF NEEDED? YES; MCH 32.7 PG (27-31); MCHC 33.3 g/dL (33-37); MCV 98.2 FL (81-99); MONO# 0.09 X1000 (0.11-0.59); MONO% 1.3 % (1.7-9.3); MPV 9.9 FL (7.4-10.4); NEUT% 90.7 % (42.2-75.2); PLT 210 X1000 (130-400); RBC 3.94 XMIL (4.2-5.4)
[2016-06-21 07:23] LABS: CALCIUM 7.7 mg/dL (8.8-10.2); POTASSIUM 3.1 mmol/L (3.5-5.1)
[2016-06-21 08:16] LABS: LYMPHS 11 % (21-51); MONO 1 % (1-9)
[2016-06-21] MEDS ORDERED: KLOR-CON PO ONE (08:35)
[2016-06-21] MEDS: PRINIVIL PO SCH (09:20)
[2016-06-21] MEDS: PLETAL PO SCH ×2 (09:20→21:33)
[2016-06-21] MEDS: CARDIZEM CD PO SCH (09:22)
[2016-06-21] MEDS: ASPIRIN EC PO SCH (09:22)
[2016-06-21] MEDS: CYMBALTA PO SCH (09:22)
[2016-06-21] MEDS: ELIQUIS PO SCH ×2 (09:22→21:33)
[2016-06-21] MEDS: BETAPACE PO SCH ×2 (09:22→21:35)
[2016-06-21] MEDS: ENTOCORT EC PO SCH ×2 (09:35→21:33)
[2016-06-21] MEDS ORDERED: CIPRO PO SCH (12:15)
[2016-06-21] MEDS ORDERED: IMODIUM PO ONE (12:52)
[2016-06-21] MEDS: FLAGYL PO SCH ×2 (12:56→21:34)
[2016-06-21] MEDS: LEVAQUIN PO SCH (12:56)
[2016-06-21] MEDS ORDERED: SODIUM CHLORIDE 0.9% INJ SCH (13:00)
[2016-06-21] MEDS ORDERED: PROTONIX IV SCH (13:00)
--- NOTE | 2016-06-21 13:22 | PROGRESS NOTE ---
DATE: 06/21/2016 SUBJECTIVE: Today, Ms. Henry referred to be doing fine. She continues to have remarkable diarrhea maybe 8 times per day. According to her, it is nonbloody. OBJECTIVE: Vital signs: Blood pressure is 154/87, pulse is 79, respirations 16, and temperature is 97.9 degrees. General: Ms. Henry is a 66-year-old female. She is in bed. She did not seem to be in any distress. HEENT: Mucosa is slightly dry. Anicteric. Acyanotic. Neck: Supple. Chest: Air entry is bilaterally reduced. There is a prolonged expiratory phase of respiration and there are diffuse bilateral end expiratory wheezes, which sound a little better than yesterday. Cardiovascular: Irregularly irregular, but rate controlled. No murmurs, no rubs. Abdomen: Soft. Extremities: No pedal edema. Central Nervous System: Patient is alert and oriented x4. There is no focal neurological deficit. LABORATORY DATA: WBC is 7.12, hemoglobin is 12.9, platelet count is 210,000. Chemistry is reviewed. Sodium is 139, potassium is 3.1, chloride is 108, bicarbonate is 18, creatinine is 1.0. Stool WBC: Not seen. Stool culture: No growth. Clostridium difficile toxin is negative. Occult blood is slightly positive. ASSESSMENT: 1. Acute hypoxemic respiratory failure on presentation, likely due to chronic obstructive pulmonary disease exacerbation as well as diastolic heart failure from atrial fibrillation with rapid ventricular response. 2. Suspected chronic obstructive pulmonary chronic obstructive pulmonary disease. Patient has bronchospasms and has a significant history of smoking abuse. This has not been officially diagnosed. She has been treated over the years for multiple episodes of bronchitis. I think she will need to follow up with Pulmonary Medicine for PFTs. 3. Atrial fibrillation with rapid ventricular response. Cardiology has evaluated the patient. Patient is currently on diltiazem, sotalol, and digoxin, and seems to be doing a whole lot better. 4. Carboxyhemoglobinemia consistent with active tobacco smoking. 5. Acute kidney injury due to volume depletion. We will continue with hydration. 6. Hypokalemia. We will replace this. 7. Chronic diarrhea etiology is unclear. Patient referred that she has been diagnosed in the past with microscopic colitis. Her ESR is significantly elevated. CRP is still pending. So far, infectious etiology seems to be negative, so patient could have an inflammatory bowel disease. I did send her inflammatory bowel panel. I am yet to speak to her primary yarn handler, Dr. Quintanilla, to see if any workup has been done in the past. I will also do a CT scan of the abdomen to see if there is any active colitis on the lopez. 8. We will change the current antibiotics to p.o. levofloxacin and metronidazole. The levofloxacin will cover for both the chronic obstructive pulmonary disease exacerbation and also for the gastrointestinal disease. We will continue with the current steroids. 9. I think the patient is relatively stable. If her yarn handler plans to do anything outpatient and his CT scan of the abdomen is unremarkable, we will be able to discharge her first thing tomorrow morning. cc: Giuseppe Lin MD
--- NOTE | 2016-06-21 14:44 | Diag Imaging Result Document ---
PROCEDURE NAME: ABDOMEN/PELVIS W/CONTRAST - 06/21/2016 CT ABDOMEN AND PELVIS WITH INTRAVENOUS CONTRAST: A CT dose reduction protocol was used. COMPARISON: 01/10/2016. FINDINGS: There are some minimal patchy infiltrates in the right middle and lower lobes, nonspecific. The proximal colon is largely fluid filled, and the distal colon is decompressed. No wall thickening or inflammatory changes. No bowel obstruction. The liver, gallbladder, spleen, pancreas, and kidneys are normal. There is a stable left adrenal nodule. There is vascular disease of the abdominal aorta and its pelvic branches. Uterus is absent. Urinary bladder and rectum are normal. There are surgical fusion changes of the lumbar spine. No acute bony lesions. There is smooth enlargement of the inferior right rectus muscle. This is new from prior. This measures up to 2.3 x 4.9 cm in AP and lateral dimensions. IMPRESSION: 1. Enlargement of the inferior right rectus muscle. An intramuscular hematoma is suspected. Correlate clinically. 2. Fluid-filled colon with, otherwise, no evidence of colitis. 3. Minimal nonspecific patchy infiltrates in the right lung base. 4. Stable, probably benign, left adrenal nodule. [facility]
[2016-06-21] MEDS: RESTORIL PO SCH (21:33)
[2016-06-21] MEDS: ZOCOR PO SCH (21:34)
[2016-06-21] MEDS: GLUCOTROL PO SCH (21:35)
[2016-06-21] MEDS: NEURONTIN PO SCH (21:35)
[2016-06-22] MEDS: DUONEB (A & A) INH SCH ×3 (04:15→10:55)
[2016-06-22] MEDS: SOLU-MEDROL IV SCH (06:50)
[2016-06-22] MEDS: FLAGYL PO SCH ×2 (06:50→12:17)
[2016-06-22] MEDS: NS 1,000 ML IV SCH ×2 (06:51→09:56)
[2016-06-22 07:25] LABS: HEMATOCRIT 39.4 % (37.0-47.0); HEMOGLOBIN 13.5 g/dL (12.0-16.0); IMM GRAN# 0.03 X1000 (0.0-0.04); IMM GRAN% 0.2 % (0.0-0.5); LYMPH% 4.1 % (20.5-51.1); MANUAL DIFF NEEDED? YES; MCH 33.2 PG (27-31); MCHC 34.3 g/dL (33-37); MCV 96.8 FL (81-99); MONO# 0.73 X1000 (0.11-0.59); MONO% 4.3 % (1.7-9.3); MPV 9.8 FL (7.4-10.4); NEUT% 91.4 % (42.2-75.2); PLT 246 X1000 (130-400); RBC 4.07 XMIL (4.2-5.4)
[2016-06-22 07:50] LABS: ALBUMIN 2.9 g/dL (3.5-5.0); CALCIUM 8.9 mg/dL (8.8-10.2); POTASSIUM 3.4 mmol/L (3.5-5.1); TOTAL BILIRUBIN 0.3 mg/dL (0.20-1.00)
[2016-06-22 08:11] LABS: LYMPHS 1 % (21-51); NRBC 3 % (0-0)
[2016-06-22 08:28] VITALS: BP 119/77
[2016-06-22] MEDS ORDERED: KLOR-CON PO ONE (08:36)
[2016-06-22] MEDS: CARDIZEM CD PO SCH (09:54)
[2016-06-22] MEDS: PRINIVIL PO SCH (09:54)
[2016-06-22] MEDS: ENTOCORT EC PO SCH (09:54)
[2016-06-22] MEDS: PLETAL PO SCH (09:55)
[2016-06-22] MEDS: LEVAQUIN PO SCH (09:55)
[2016-06-22] MEDS: BETAPACE PO SCH (09:55)
[2016-06-22] MEDS: ELIQUIS PO SCH (09:55)
[2016-06-22] MEDS: CYMBALTA PO SCH (09:55)
[2016-06-22] MEDS: ASPIRIN EC PO SCH (09:55)
[2016-06-22] MEDS ORDERED: PREDNISONE PO SCH (10:45)
--- NOTE | 2016-06-22 15:42 | DISCHARGE SUMMARY ---
ADMISSION DATE: 06/18/2016 DISCHARGE DATE: 06/22/2016 PRIMARY CARE PHYSICIAN: Corine Ruffin MD. ADMISSION DIAGNOSES: 1. Atrial fibrillation with rapid ventricular response. 2. Hyponatremia. 3. Hypokalemia. 4. Hypotension. 5. Tobacco abuse. DISCHARGE DIAGNOSES: 1. Atrial fibrillation with rapid ventricular response resolved, currently rate controlled. 2. Hyponatremia resolved. 3. Hypokalemia resolved. 4. Hypotension resolved. 5. Chronic obstructive pulmonary disease. 6. Diastolic heart failure. 7. Chronic diarrhea. SUMMARY OF FINDINGS: This is a 66-year-old female who presented to [facility] with complaints of shortness of breath that progressively worsened over 4 days prior to arrival. It began approximately 1 week ago when she was treated for an upper respiratory infection and did not really improve. She denied any chest pain, nausea, vomiting or diarrhea at this time. Chest x-ray was negative. In the emergency room she was noted to have an EKG showing atrial fibrillation with RVR at 1:45 with a blood pressure on arrival 94/58, and 20 minutes after arrival dropped to 81/64, and was started on Sachin-Synephrine drip, placed on IV hydration, Cardizem 30 mg p.o. q.6 hours and was admitted to the Intensive Care Unit. Cardiology was consulted. An echocardiogram was obtained that showed an ejection fraction of 64% with normal left ventricular size and normal LV systolic dysfunction. We obtained an abdomen and pelvic CT that showed enlargement of the inferior right rectus muscle, intramuscular hematoma was suspected, fluid filled colon, no evidence of colitis, minimal nonspecific patchy infiltrate in the right lung base and a stable probably benign left adrenal nodule. Her electrolytes have all resolved and are within normal limits. Blood pressure today is 119/77 and it was felt that she could safely be discharged home. DISCHARGE MEDICATIONS: 1. Eliquis 2.5 mg p.o. b.i.d. 2. Aspirin 81 mg p.o. daily. 3. Buspirone 15 mg p.o. b.i.d. 4. Cilostazol 100 mg p.o. b.i.d. 5. Cardizem CD 240 mg p.o. daily. 6. Advair 250/50, 1 inhalation b.i.d. 7. Gabapentin 300 mg 2 p.o. at bedtime. 8. Glipizide 5 mg p.o. at bedtime. 9. Levaquin 250 mg p.o. daily for 7 days. 10. Lisinopril 20 mg p.o. t.i.d. 11. Losartan 50 mg p.o. b.i.d. 12. Flagyl 500 mg p.o. q.8 hours, #21 with no refills. 13. Zocor 40 mg p.o. at bedtime. 14. Sotalol 80 mg p.o. b.i.d. 15. Temazepam 30 mg p.o. at bedtime. 16. Spiriva 1 inhalation daily. FOLLOWUP: She will need to follow up with Dr. Bowen with GI as directed, with Pulmonology, Dr. Jaime, and she will call the office for an appointment, and with Dr. Ruffin in 1-2 weeks. All discharge instructions were reviewed with the patient. She verbalized understanding. DISCHARGE TIME: 35 minutes. Dictated by MENDOZA Thomas for Giuseppe Lin MD cc: MENDOZA Thomas MD Bhavna Gowda, MD James E. Boyle, MD Manish Arora, MD
[2016-06-22] MEDS ORDERED: ADVAIR 250/50 DISKUS INH SCH (19:30)
[2016-06-23] MEDS ORDERED: SPIRIVA INH SCH (07:30)
== END 2016-06-22 13:25 | disposition home or self-care (01) ==
LOC: P.ED 11:06 → SUATTDRO 12:49 → P.ICU 12:49 → P.MEDSURG 06-20 21:15
PROVIDERS: ATTEND Internal Medicine